=== PATIENT | female | born 1985 | race Two or more races ===

== ENCOUNTER 2023-08-07 15:14 | Emergency (ER) | payer MEDICAID, OTHER ==
[~2023-08-07] VITALS: Ht 167.6 cm; Wt 112.1 kg
[2023-08-07] MEDS: KETOROLAC TROMETH 60MG/2ML VIAL IM ONE (17:43)
[2023-08-07 17:55] VITALS: BP 120/84; TEMP 98.7
[2023-08-07 17:56] VITALS: PULSE 116; RESP 20; O2SAT 99
[2023-08-07] MEDS ORDERED: IBUP-1456 PO (18:10)
[2023-08-07] MEDS ORDERED: METH-1182 PO (18:10)
[2023-08-08] MEDS ORDERED: IBUP-1456 PO (20:20)
[2023-08-08] MEDS ORDERED: METH-1182 PO (20:20)
== END 2023-08-07 18:13 | disposition home or self-care (01) ==
LOC: ER 15:14
DX: S39.011A Strain of muscle, fascia and tendon of abdomen, initial encounter (principal); S93.492A Sprain of other ligament of left ankle, initial encounter; S29.011A Strain of muscle and tendon of front wall of thorax, initial encounter; Z88.0 Allergy status to penicillin; Z88.8 Allergy status to other drugs, medicaments and biological substances; Z79.899 Other long term (current) drug therapy; V43.52XA Car driver injured in collision with other type car in traffic accident, initial encounter; Y93.I9 Activity, other involving external motion; Y92.89 Other specified places as the place of occurrence of the external cause; Y99.8 Other external cause status
CPT/HCPCS: 71250; 73610; 74176; 96372; 99285; J1885

== ENCOUNTER 2023-08-13 14:07 | Emergency (ER) | payer MEDICAID, OTHER ==
[~2023-08-13] VITALS: Ht 167.6 cm; Wt 112.0 kg
[~2023-08-13 14:07] MED LIST: IBUP-1456 PO; METH-1182 PO
[2023-08-13 16:20] VITALS: BP 118/55; PULSE 64; RESP 16; TEMP 98.7; O2SAT 100
== END 2023-08-13 16:26 | disposition home or self-care (01) ==
LOC: EDBD 14:07 → ER 14:07 → EDUNIT# 14:07 → ER 16:26
DX: M94.0 Chondrocostal junction syndrome [Tietze] (principal); F17.210 Nicotine dependence, cigarettes, uncomplicated; Z79.1 Long term (current) use of non-steroidal anti-inflammatories (NSAID); Z79.899 Other long term (current) drug therapy; Z88.0 Allergy status to penicillin; Z88.1 Allergy status to other antibiotic agents
CPT/HCPCS: 36415; 71046; 84484; 93005

== ENCOUNTER 2024-02-01 00:50 | Emergency (ER) | payer MEDICAID ==
[~2024-02-01] VITALS: Ht 167.6 cm; Wt 110.0 kg
[2024-02-01 01:24] LABS: Basophils # (auto) 0 10 ^3/uL (0-0.2); Basophils % (auto) 0.2 % (0.0-2.0); Eosinophils # (auto) 0.1 10 ^3/uL (0-0.8); Eosinophils % (auto) 0.8 % (0.0-7.0); Hematocrit 38.3 % (36.0-46.0); Hemoglobin 13.1 g/dL (12.2-16.2); Lymphocytes # (auto) 3.5 10 ^3/uL (0.4-5.4); Lymphocytes % (auto) 31.7 % (10.0-50.0); Mean Corpuscular Hemoglobin 30.9 pg (28.0-32.0); Mean Corpuscular Hgb Conc. 34.3 g/dL (32.0-36.0); Mean Corpuscular Volume 90.1 fL (80.0-100.0); Monocytes # (auto) 0.7 10 ^3/uL (0-1.3); Monocytes % (auto) 6.1 % (0.0-12.0); Neutrophils # (auto) 6.8 10 ^3/uL (1.6-8.6); Neutrophils % (auto) 61.2 % (37.0-80.0); Platelet Count (auto) 290 10^3/uL (140-450); Red Blood Cells 4.25 10^6/uL (4.0-5.20); Red Cell Distribution Width 13.3 % (11.8-14.3); White Blood Cell 11.1 10^3/uL (4.4-10.8)
[2024-02-01 01:38] LABS: Alanine Aminotransferase 24 U/L (7-40); Albumin 4.3 g/dL (3.2-4.8); Alkaline Phosphatase 114 U/L (46-116); Anion Gap 6 (5-15); Aspartate Aminotransferase 13 U/L (13-40); BUN/Creatinine Ratio 14.4 (10.0-20.0); Blood Urea Nitrogen 14 mg/dL (9-23); Calcium 9.2 mg/dL (8.7-10.4); Carbon Dioxide 26 mmol/L (20-30); Chloride 106 mmol/L (98-107); Glucose 100 mg/dL (74-106); Magnesium 1.8 mg/dL (1.6-2.6); Potassium 3.7 mmol/L (3.5-5.1); Sodium 138 mmol/L (136-145)
[2024-02-01 01:39] LABS: Bilirubin, Total 0.3 mg/dL (0.2-1.0); Total Protein 7.1 g/dL (5.7-8.2)
[2024-02-01 01:59] LABS: INR 0.97 (0.9-1.15); Partial Thromboplastin Time 28.3 SEC (24.5-34.5); Prothrombin Time 10.3 sec (9.3-11.8)
[2024-02-01 02:52] LABS: Urine Bacteria None Seen /hpf (None Seen)
[2024-02-01 03:23] LABS: Urine Blood Negative /uL (Negative); Urine Clarity Clear (Clear); Urine Color Colorless (Yellow); Urine Protein, UAD Negative (Negative); Urine Specific Gravity 1.005 (1.001-1.035); Urine Urobilinogen Normal (Negative); Urine WBC <1 /hpf (0 - 5); Urine pH 5.5 (5.0-9.0)
[2024-02-01 03:44] VITALS: BP 101/60; TEMP 97.4
[2024-02-01 03:45] VITALS: PULSE 68; RESP 18; O2SAT 100
== END 2024-02-01 03:52 | disposition home or self-care (01) ==
LOC: ER 00:50
DX: R07.89 Other chest pain (principal); Z88.0 Allergy status to penicillin; Z88.8 Allergy status to other drugs, medicaments and biological substances; Z79.1 Long term (current) use of non-steroidal anti-inflammatories (NSAID); Z98.890 Other specified postprocedural states; F17.210 Nicotine dependence, cigarettes, uncomplicated
CPT/HCPCS: 36415; 71045; 80053; 81001; 83735; 83880; 84484; 85025; 85379; 85610; 85730; 93005

== ENCOUNTER 2024-03-19 11:45 | Emergency (ER) | payer MEDICAID ==
[~2024-03-19] VITALS: Ht 167.6 cm; Wt 111.3 kg
[2024-03-19 12:04] LABS: Urine Bacteria None Seen /hpf (None Seen); Urine WBC None Seen /hpf (0 - 5)
[2024-03-19 12:21] LABS: Urine Blood 2+ /uL (Negative); Urine Clarity Clear (Clear); Urine Color Colorless (Yellow); Urine Protein, UAD Negative (Negative); Urine Specific Gravity 1.003 (1.001-1.035); Urine Urobilinogen Normal (Negative); Urine pH 6.5 (5.0-9.0)
[2024-03-19] MEDS: SODIUM CHLORIDE 0.9% 1,000 ML IV ONE (13:02)
[2024-03-19] MEDS: ONDANSETRON HCL 4 MG/2 ML VIAL IV ONE (13:10)
[2024-03-19] MEDS: ACETAMINOPHEN 500 MG TAB PO ONE (13:10)
[2024-03-19 13:28] LABS: Basophils # (auto) 0.1 10 ^3/uL (0-0.2); Basophils % (auto) 0.5 % (0.0-2.0); Eosinophils # (auto) 0.1 10 ^3/uL (0-0.8); Eosinophils % (auto) 0.8 % (0.0-7.0); Hematocrit 36.8 % (36.0-46.0); Hemoglobin 12.8 g/dL (12.2-16.2); Lymphocytes # (auto) 2.3 10 ^3/uL (0.4-5.4); Mean Corpuscular Hemoglobin 31.9 pg (28.0-32.0); Mean Corpuscular Hgb Conc. 34.7 g/dL (32.0-36.0); Mean Corpuscular Volume 91.9 fL (80.0-100.0); Monocytes # (auto) 0.5 10 ^3/uL (0-1.3); Monocytes % (auto) 4.9 % (0.0-12.0); Neutrophils # (auto) 6.6 10 ^3/uL (1.6-8.6); Neutrophils % (auto) 69.8 % (37.0-80.0); Platelet Count (auto) 286 10^3/uL (140-450); Red Blood Cells 4.01 10^6/uL (4.0-5.20); Red Cell Distribution Width 13.7 % (11.8-14.3); White Blood Cell 9.5 10^3/uL (4.4-10.8)
[2024-03-19 13:47] LABS: Alanine Aminotransferase 22 U/L (7-40); Albumin 3.6 g/dL (3.2-4.8); Alkaline Phosphatase 77 U/L (46-116); Anion Gap 4 (5-15); Aspartate Aminotransferase 13 U/L (13-40); BUN/Creatinine Ratio 10.3 (10.0-20.0); Bilirubin, Total 0.3 mg/dL (0.2-1.0); Blood Urea Nitrogen 8 mg/dL (9-23); Carbon Dioxide 27 mmol/L (20-31); Chloride 111 mmol/L (98-107); Glucose 92 mg/dL (74-106); Potassium 4.3 mmol/L (3.5-5.1); Sodium 142 mmol/L (136-145); Total Protein 5.6 g/dL (5.7-8.2)
[2024-03-19] MEDS ORDERED: ZOFR4T PO (15:51)
[2024-03-19] MEDS ORDERED: IBUP1TAB5 PO (15:51)
[2024-03-19 16:26] VITALS: BP 101/44; TEMP 97.8
[2024-03-19 16:31] VITALS: PULSE 77; RESP 18; O2SAT 98
== END 2024-03-19 16:34 | disposition home or self-care (01) ==
LOC: ER 11:45
DX: R42 Dizziness and giddiness (principal); R10.2 Pelvic and perineal pain; R51.9 Headache, unspecified; R11.0 Nausea; F17.210 Nicotine dependence, cigarettes, uncomplicated; Z88.0 Allergy status to penicillin; Z88.1 Allergy status to other antibiotic agents; Z79.899 Other long term (current) drug therapy
CPT/HCPCS: 36415; 70450; 80053; 81001; 84484; 84702; 85025; 96361; 96374; 99285; J2405; J7030

== ENCOUNTER 2024-05-30 00:25 | Emergency (ER) | payer MEDICAID ==
[~2024-05-30] VITALS: Ht 167.6 cm; Wt 109.5 kg
[~2024-05-30 00:25] MED LIST changes: +IBUP1TAB5 PO; +ZOFR4T PO
--- NOTE | 2024-05-30 00:54 | ED.PDOC ---
HPI Comments 38 year old female presents to the ED with a chief complaint of chest pain onset 3 days. Patient states she began experiencing chest pain, describes it as a sharp/pressure sensation and radiates to her low back and worsens with deep breaths. Patient is also experiencing blurry vision, headache, dizziness. She donates plasma weekly. Denies any past medical history as well as nausea, vomiting, diarrhea, abdominal pain, dysuria, hematuria. No other symptoms or modifying factors present at this time. Chief Complaint: Chest Pain Time Seen by MD: 00:41 Primary Care Provider: MELANIE Lloyd Notes: Medications, Allergies Allergies: Coded Allergies: Doxycycline (Verified Allergy, Unknown, 08/07/23) Penicillins (Verified Allergy, Unknown, 08/07/23) Home Meds Active Scripts Ondansetron Odt 4MG Tab (ZOFRAN PO) 4 Mg Tb, 4 MG PO TID PRN, #20 TAB prn n/v ODT TAB-DISSOLVE IN MOUTH, THEN SWALLOW Prov:RICHARD DRUMMOND MD 03/19/24 Ibuprofen Micronized (Ibuprofen) 600 Mg Tab, 600 MG PO Q6HPRN PRN, #30 TAB prn pain Prov:RICHARD DRUMMOND MD 03/19/24 Methocarbamol (Methocarbamol) 750 Mg Tab, 750 MG PO BID, #20 TAB Prov:GEETA LEE 08/08/23 Ibuprofen (Ibuprofen) 800 Mg Tab, 1 TAB PO TID, #30 TAB Prov:GEETA LEE 08/08/23 Information Source: Patient Mode of Arrival: Ambulatory Severity: Moderate Timing: Days Duration: Since onset Prehospital treatment: None Location: Chest (L) Radiation: Back Quality: Sharp, Pressure Onset: At Rest Cardiac Risk Factors: Smoker PE Risk Factors: None History of: None Modifying Factors: Nothing Past Medical History PAST MEDICAL HISTORY: Denies Surgical History: Denies all surgeries 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 DESIGNER 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 Family History Family History: Reviewed,noncontributory to illness Social History Smoker: Cigarettes, Other Alcohol: Occasionally Drugs: Denies Drug Use Lives In: Home Constitutional: denies: chills, diaphoresis, fatigue, fever, malaise, sweats, weakness, others EENTM: reports: blurred vision; denies: double vision, ear bleeding, ear discharge, ear drainage, ear pain, ear ringing, eye pain, eye redness, hearing loss, mouth pain, mouth swelling, nasal discharge, nose bleeding, nose congestion, nose pain, photophobia, tearing, throat pain, throat swelling, voice changes, others Respiratory: denies: cough, hemoptysis, orthopnea, SOB at rest, shortness of breath, SOB with excertion, stridor, wheezing, others Cardiovascular: reports: chest pain; denies: dizzy spells, diaphoresis, Dyspnea on exertion, edema, irregular heart beat, left arm pain, lightheadedness, palpitations, PND, syncope, others Gastrointestinal: denies: abdomen distended, abdominal pain, blood streaked bowels, constipated, diarrhea, dysphagia, difficulty swallowing, hematemesis, melena, nausea, poor appetite, poor fluid intake, rectal bleeding, rectal pain, vomiting, others Genitourinary: denies: abnormal vagina bleeding, burning, dyspareunia, dysuria, flank pain, frequency, hematuria, incontinence, pain, , vagina discharge, urgency, others Neurological: reports: dizziness, headache; denies: fainting, left sided numbness, left sided weakness, numbness, paresthesia, pre-existing deficit, right sided numbness, right sided weakness, seizure, speech problems, tingling, tremors, weakness, others Musculoskeletal: reports: back pain; denies: gout, joint pain, joint swelling, muscle pain, muscle stiffness, neck pain, others Integumetry: denies: bruises, change in color, change in hair/nails, dryness, laceration, lesions, lumps, rash, wounds, others Allergic/Immunocompromised: denies: Difficulty Healing, Frequent Infections, Hives, Itching, others Hematologic/Lymphatic: denies: anemia, blood clots, easy bleeding, easy bruising, swollen glands, others Endocrine: denies: excessive hunger, excessive sweating, excessive thirst, excessive urination, flushing, intolerance to cold, intolerance to heat, unexplained weight gain, unexplained weight loss, others Psychiatric: denies: anxiety, bipolar disorder, depression, hopeless, panic disorder, schizophrenia, sleepless, suicidal, others All Other Systems: Reviewed and Negative Physical Exam General Appearance: Mild Distress, Normal HEENT: Normal ENT Inspection, Pharynx Normal, TMs Normal Neck: Full Range of Motion, Non-Tender, Normal, Normal Inspection Respiratory: Chest Non-Tender, Lungs Clear, No Accessory Muscle Use, No Respiratory Distress, Normal Breath Sounds Cardiovascular: No Edema, No JVD, No Murmur, No Gallop, Normal Peripheral Pulses, Regular Rate/Rhythm Breast Exam: Deferred Gastrointestinal: No Organomegaly, Non Tender, No Pulsatile Mass, Normal Bowel Sounds, Soft Genitalia: Deferred Pelvic: Deferred Rectal: Deferred Extremities: No calf tenderness, Normal capillary refill, Normal inspection, Normal range of motion, Non-tender, No pedal edema Musculoskeletal : Apperance: Normal Neurologic: Alert, beet topper II-XII nml as Tested, No Motor Deficits, Normal Affect, Normal Mood, No Sensory Deficits Cerebellar Function: Normal Reflexes: Normal Skin: Dry, Normal Color, Warm Lymphatic: No Adenopathy Was a procedure done? Was a procedure done?: No CP Differential Dx Differential Diagnosis: A-fib, Angina, Heart Failure, Other Differential Diagnosis: CHF Differential Diagnosis: Chest Wall Pain, Esophageal reflux/spasm, Gastritis, Myocardial Infarction, Pneumonia X-Ray, Labs, Meds, VS Vital Signs Date Time Temp Pulse Resp B/P (MAP) Pulse Ox O2 Delivery O2 Flow Rate FiO2 05/30/24 02:15 97.8 72 16 133/68 (89) 97 97.8 05/30/24 02:15 16 16 97 Room Air 05/30/24 00:32 70 05/30/24 00:30 97.8 72 16 133/68 (89) 97 Lab Test 05/30/24 00:48 Range/Units White Blood Count 9.9 4.4-10.8 10^3/uL Red Blood Count 4.45 4.0-5.20 10^6/uL Hemoglobin 13.8 12.2-16.2 g/dL Hematocrit 41.3 36.0-46.0 % Mean Corpuscular Volume 92.8 80.0-100.0 fL Mean Corpuscular Hemoglobin 31.1 28.0-32.0 pg Mean Corpuscular Hemoglobin Concent 33.5 32.0-36.0 g/dL Red Cell Distribution Width 13.3 11.8-14.3 % Platelet Count 314 140-450 10^3/uL Mean Platelet Volume 7.7 6.9-10.8 fL Neutrophils (%) (Auto) 58.9 37.0-80.0 % Lymphocytes (%) (Auto) 34.5 10.0-50.0 % Monocytes (%) (Auto) 5.5 0.0-12.0 % Eosinophils (%) (Auto) 0.6 0.0-7.0 % Basophils (%) (Auto) 0.5 0.0-2.0 % Neutrophils # (Auto) 5.8 1.6-8.6 10 ^3/uL Lymphocytes # (Auto) 3.4 0.4-5.4 10 ^3/uL Monocytes # (Auto) 0.5 0-1.3 10 ^3/uL Eosinophils # (Auto) 0.1 0-0.8 10 ^3/uL Basophils # (Auto) 0 0-0.2 10 ^3/uL Nucleated Red Blood Cells 0.1 % Prothrombin Time 10.3 9.3-11.8 sec Prothrombin Time INR 0.97 0.9-1.15 Activated Partial Thromboplast Time 27.6 24.5-34.5 SEC Sodium Level 140 136-145 mmol/L Potassium Level 4.1 3.5-5.1 mmol/L Chloride Level 107 98-107 mmol/L Carbon Dioxide Level 25 20-31 mmol/L Anion Gap 8 5-15 Blood Urea Nitrogen 9 9-23 mg/dL Creatinine 0.88 0.550-1.02 mg/dL Glomerular Filtration Rate Calc 87 >90 mL/min BUN/Creatinine Ratio 10.2 10.0-20.0 Serum Glucose 99 74-106 mg/dL Calcium Level 9.7 8.7-10.4 mg/dL Total Bilirubin 0.4 0.2-1.0 mg/dL Aspartate Amino Transferase (AST) 11 L 13-40 U/L Alanine Aminotransferase (ALT) 23 7-40 U/L Alkaline Phosphatase 90 46-116 U/L Troponin I High Sensitivity < 3 L </=34 ng/L Total Protein 6.6 5.7-8.2 g/dL Albumin 4.3 3.2-4.8 g/dL Time of 1ST Reevaluation: 01:11 Reevaluation 1ST: Unchanged Time of 2ND Reevaluation: 02:30 Reevaluation 2ND: Improved Patient Education/Counseling: Diagnosis, Treatment, Prognosis Family Education/Counseling: No Family Present Additional Information I reviewed the following notes from patient's past medical encounters: The following tests were ordered, and results were reviewed by me: TROP, TROP, TROP, EKG, EKG, EKG, CBC, CMP, PTPTT, XY CHEST 1 VIEW I reviewed and agreed with the following test results read by other providers: X Y CHEST 1 VIEW I discussed treatment and results with medical personnel and: patient Departure 1 Departure Time of Disposition: 02:30 Impression: Primary Impression: Atypical chest pain Disposition: HOME / SELF CARE / HOMELESS Condition: Stable Discharged With: Self Critical Care Note Critical Care Time?: No Stability Stability form required: No Heart Score Heart Score: Heart Score Response (Comments) Value History Slightly Suspicious 0 EKG Normal 0 Age <45 0 Risk Factors No known risk factors 0 Troponin Normal limit 0 Total 0 I personally scribed for BERRY KNOX MD ([email or web address]) on 05/30/24 at 00:54. Electronically submitted by Kristi Orlando ([email or web address]). I personally scribed for BERRY KNOX MD ([email or web address]) on 05/30/24 at 01:15. Electronically submitted by Kristi Orlando ([email or web address]). BERRY KNOX MD May 30, 2024 00:54
[2024-05-30 01:12] LABS: Basophils # (auto) 0 10 ^3/uL (0-0.2); Basophils % (auto) 0.5 % (0.0-2.0); Eosinophils # (auto) 0.1 10 ^3/uL (0-0.8); Eosinophils % (auto) 0.6 % (0.0-7.0); Hematocrit 41.3 % (36.0-46.0); Hemoglobin 13.8 g/dL (12.2-16.2); Lymphocytes # (auto) 3.4 10 ^3/uL (0.4-5.4); Lymphocytes % (auto) 34.5 % (10.0-50.0); Mean Corpuscular Hemoglobin 31.1 pg (28.0-32.0); Mean Corpuscular Hgb Conc. 33.5 g/dL (32.0-36.0); Mean Corpuscular Volume 92.8 fL (80.0-100.0); Monocytes # (auto) 0.5 10 ^3/uL (0-1.3); Monocytes % (auto) 5.5 % (0.0-12.0); Neutrophils # (auto) 5.8 10 ^3/uL (1.6-8.6); Neutrophils % (auto) 58.9 % (37.0-80.0); Nucleated Red Blood Cells % 0.1 %; Platelet Count (auto) 314 10^3/uL (140-450); Red Blood Cells 4.45 10^6/uL (4.0-5.20); Red Cell Distribution Width 13.3 % (11.8-14.3); White Blood Cell 9.9 10^3/uL (4.4-10.8)
[2024-05-30 01:23] LABS: Alanine Aminotransferase 23 U/L (7-40); Albumin 4.3 g/dL (3.2-4.8); Alkaline Phosphatase 90 U/L (46-116); Anion Gap 8 (5-15); BUN/Creatinine Ratio 10.2 (10.0-20.0); Blood Urea Nitrogen 9 mg/dL (9-23); Calcium 9.7 mg/dL (8.7-10.4); Carbon Dioxide 25 mmol/L (20-31); Chloride 107 mmol/L (98-107); Glucose 99 mg/dL (74-106); Potassium 4.1 mmol/L (3.5-5.1); Sodium 140 mmol/L (136-145)
[2024-05-30 01:24] LABS: Aspartate Aminotransferase 11 U/L (13-40); Bilirubin, Total 0.4 mg/dL (0.2-1.0); Total Protein 6.6 g/dL (5.7-8.2)
[2024-05-30 01:35] LABS: INR 0.97 (0.9-1.15); Partial Thromboplastin Time 27.6 SEC (24.5-34.5); Prothrombin Time 10.3 sec (9.3-11.8)
--- NOTE | 2024-05-30 02:03 | DVH ---
EXAM: XY CHEST XRAY 1 VIEW CLINICAL HISTORY: chest pain TECHNIQUE: Single AP view of the chest WID: COMPARISON: XY CHEST PORTABLE on DOS: 02/01/24 FINDINGS: Lines and tubes: None Chest: The heart size and pulmonary vasculature is within normal limits. No pleural effusion, pneumothorax, or consolidation. The osseous structures are grossly intact. IMPRESSION: No acute cardiopulmonary abnormality.
[2024-05-30 02:15] VITALS: BP 133/68; PULSE 16; RESP 16; TEMP 97.8; O2SAT 97
--- NOTE | 2024-06-08 07:01 | ECG ---
[facility] Test Date: 2024-05-30 Test Time: 00:32:36 Pat Name: NATACHA ROGERS Department: ER Room: Gender: F Brim Stiffener: DARRELL : 1985 Requested By: BERRY KNOX Order Number: [id number] Reading MD: Measurements Intervals [place] Rate: 70 P: 46 PA: 149 QRS: 77 QRSD: 96 T: 44 QT: 396 QTc: 428 Interpretive Statements Sinus rhythm Please click the below link to view image of tracing.
== END 2024-05-30 03:09 | disposition home or self-care (01) ==
LOC: ER 00:25
DX: R07.89 Other chest pain (principal); F17.210 Nicotine dependence, cigarettes, uncomplicated; R42 Dizziness and giddiness; R51.9 Headache, unspecified; Z79.1 Long term (current) use of non-steroidal anti-inflammatories (NSAID); Z88.0 Allergy status to penicillin; Z88.1 Allergy status to other antibiotic agents
CPT/HCPCS: 36415; 71045; 80053; 84484; 85025; 85610; 85730; 93005

== ENCOUNTER 2024-06-19 00:24 | Emergency (ER) | payer MEDICAID ==
[~2024-06-19] VITALS: Ht 167.6 cm; Wt 107.9 kg
--- NOTE | 2024-06-19 00:44 | ED.PDOC ---
HPI Comments 38-year-old female came to emergency room due to chest pains. Patient with a past few hours has been having intermittent episodes of diffuse chest pains, burning, radiating to her neck and back area. Patient has been seen here before for atypical chest pains, but patient states this feels different this time. Chief Complaint: Chest Pain Time Seen by MD: 00:44 Primary Care Provider: MLEANIE Lloyd Notes: Clinical Phlebotomist Notes Allergies: Coded Allergies: Doxycycline (Verified Allergy, Unknown, 08/07/23) Penicillins (Verified Allergy, Unknown, 08/07/23) Home Meds Active Scripts Ondansetron Odt 4MG Tab (ZOFRAN PO) 4 Mg Tb, 4 MG PO TID PRN, #20 TAB prn n/v ODT TAB-DISSOLVE IN MOUTH, THEN SWALLOW Prov:RICHARD DRUMMOND MD 03/19/24 Ibuprofen Micronized (Ibuprofen) 600 Mg Tab, 600 MG PO Q6HPRN PRN, #30 TAB prn pain Prov:RICHARD DRUMMOND MD 03/19/24 Methocarbamol (Methocarbamol) 750 Mg Tab, 750 MG PO BID, #20 TAB Prov:GEETA LEE 08/08/23 Ibuprofen (Ibuprofen) 800 Mg Tab, 1 TAB PO TID, #30 TAB Prov:GEETA LEE 08/08/23 Information Source: Patient Mode of Arrival: Ambulatory Severity: Mild Timing: Hours Duration: Intermittent Prehospital treatment: None Location: Chest (R), Chest (L) Radiation: Back, Neck Quality: Burning Onset: With Light Exertion Cardiac Risk Factors: None PE Risk Factors: None History of: Similar pain in past Associated Signs and Symptoms: Back Pain Past Medical History PAST MEDICAL HISTORY: Denies Surgical History: Denies all surgeries RELIEF 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: No 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 RELIEF 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 Family History Family History: Reviewed,noncontributory to illness Social History Smoker: Cigarettes, Other Alcohol: Occasionally Drugs: Denies Drug Use Lives In: Home Constitutional: denies: chills, diaphoresis, fatigue, fever, malaise, sweats, weakness, others EENTM: denies: blurred vision, double vision, ear bleeding, ear discharge, ear drainage, ear pain, ear ringing, eye pain, eye redness, hearing loss, mouth dex n, mouth swelling, nasal discharge, nose bleeding, nose congestion, nose pain, photophobia, tearing, throat pain, throat swelling, voice changes, others Respiratory: denies: cough, hemoptysis, orthopnea, SOB at rest, shortness of breath, SOB with excertion, stridor, wheezing, others Cardiovascular: reports: chest pain; denies: dizzy spells, diaphoresis, Dyspnea on exertion, edema, irregular heart beat, left arm pain, lightheadedness, palpitations, PND, syncope, others Gastrointestinal: denies: abdomen distended, abdominal pain, blood streaked bowels, constipated, diarrhea, dysphagia, difficulty swallowing, hematemesis, melena, nausea, poor appetite, poor fluid intake, rectal bleeding, rectal pain, vomiting, others Genitourinary: denies: abnormal vagina bleeding, burning, dyspareunia, dysuria, flank pain, frequency, hematuria, incontinence, pain, , vagina discharge, urgency, others Neurological: denies: dizziness, fainting, headache, left sided numbness, left sided weakness, numbness, paresthesia, pre-existing deficit, right sided numbness, right sided weakness, seizure, speech problems, tingling, tremors, weakness, others Musculoskeletal: reports: back pain, neck pain; denies: gout, joint pain, joint swelling, muscle pain, muscle stiffness, others Integumetry: denies: bruises, change in color, change in hair/nails, dryness, laceration, lesions, lumps, rash, wounds, others Allergic/Immunocompromised: denies: Difficulty Healing, Frequent Infections, Hives, Itching, others Hematologic/Lymphatic: denies: anemia, blood clots, easy bleeding, easy bruising, swollen glands, others Endocrine: denies: excessive hunger, excessive sweating, excessive thirst, excessive urination, flushing, intolerance to cold, intolerance to heat, unexplained weight gain, unexplained weight loss, others Psychiatric: denies: anxiety, bipolar disorder, depression, hopeless, panic disorder, schizophrenia, sleepless, suicidal, others Physical Exam General Appearance: No Apparent Distress, Normal HEENT: Normal ENT Inspection, Pharynx Normal, TMs Normal Neck: Full Range of Motion, Non-Tender, Normal, Normal Inspection Respiratory: Chest Non-Tender, Lungs Clear, No Accessory Muscle Use, No Respiratory Distress, Normal Breath Sounds Cardiovascular: No Edema, No JVD, No Murmur, No Gallop, Normal Peripheral Pulses, Regular Rate/Rhythm Breast Exam: Deferred Gastrointestinal: No Organomegaly, Non Tender, No Pulsatile Mass, Normal Bowel Sounds, Soft Genitalia: Deferred Pelvic: Deferred Rectal: Deferred Extremities: No calf tenderness, Normal capillary refill, Normal inspection, Normal range of motion, Non-tender, No pedal edema Musculoskeletal : Apperance: Normal Neurologic: Alert, ad operations coordinator II-XII nml as Tested, No Motor Deficits, Normal Affect, Normal Mood, No Sensory Deficits Cerebellar Function: Normal Reflexes: Normal Skin: Dry, Normal Color, Warm Lymphatic: No Adenopathy Was a procedure done? Was a procedure done?: No CP Differential Dx Differential Diagnosis: Angina, Anxiety / Panic Attack Differential Diagnosis: Angina, Chest Wall Pain, Costochondritis, Esophageal reflux/spasm, Gastritis, Myocardial Infarction, Pneumonia X-Ray, Labs, Meds, VS Vital Signs Date Time Temp Pulse Resp B/P (MAP) Pulse Ox O2 Delivery O2 Flow Rate FiO2 06/19/24 01:51 70 06/19/24 00:25 97.7 68 18 114/67 (83) 95 Lab Test 06/19/24 01:28 06/19/24 00:35 06/19/24 00:30 Range/Units Troponin I High Sensitivity < 3 L < 3 L </=34 ng/L Urine Color Light-yellow Yellow Urine Clarity Clear Clear Urine pH 5.5 5.0-9.0 Urine Specific [place] 1.020 1.001-1.035 Urine Protein Negative Negative Urine Ketones Negative Negative Urine Blood Negative Negative /uL Urine Nitrite Negative Negative Urine Bilirubin Negative Negative Urine Urobilinogen Normal Negative mg/dL Urine Leukocyte Esterase Negative Negative /uL Urine RBC <1 0 - 4 /hpf Urine WBC <1 0 - 5 /hpf Urine Squamous Epithelial Cells Few <5 /hpf Urine Bacteria Few H None Seen /hpf Urine Mucus Few None Seen Urine Glucose Normal Normal mg/dL White Blood Count 11.7 H 4.4-10.8 10^3/uL Red Blood Count 4.25 4.0-5.20 10^6/uL Hemoglobin 13.3 12.2-16.2 g/dL Hematocrit 39.3 36.0-46.0 % Mean Corpuscular Volume 92.6 80.0-100.0 fL Mean Corpuscular Hemoglobin 31.4 28.0-32.0 pg Mean Corpuscular Hemoglobin Concent 33.9 32.0-36.0 g/dL Red Cell Distribution Width 13.4 11.8-14.3 % Platelet Count 323 140-450 10^3/uL Mean Platelet Volume 7.4 6.9-10.8 fL Neutrophils (%) (Auto) 58.3 37.0-80.0 % Lymphocytes (%) (Auto) 34.8 10.0-50.0 % Monocytes (%) (Auto) 5.7 0.0-12.0 % Eosinophils (%) (Auto) 0.8 0.0-7.0 % Basophils (%) (Auto) 0.4 0.0-2.0 % Neutrophils # (Auto) 6.8 1.6-8.6 10 ^3/uL Lymphocytes # (Auto) 4.1 0.4-5.4 10 ^3/uL Monocytes # (Auto) 0.7 0-1.3 10 ^3/uL Eosinophils # (Auto) 0.1 0-0.8 10 ^3/uL Basophils # (Auto) 0 0-0.2 10 ^3/uL Nucleated Red Blood Cells 0.1 % Sodium Level 139 136-145 mmol/L Potassium Level 3.9 3.5-5.1 mmol/L Chloride Level 106 98-107 mmol/L Carbon Dioxide Level 27 20-31 mmol/L Anion Gap 6 5-15 Blood Urea Nitrogen 9 9-23 mg/dL Creatinine 0.95 0.550-1.02 mg/dL Glomerular Filtration Rate Calc 79 >90 mL/min BUN/Creatinine Ratio 9.5 L 10.0-20.0 Serum Glucose 95 74-106 mg/dL Calcium Level 9.9 8.7-10.4 mg/dL Current Medications Medications (Trade) Dose Ordered Sig/Shayan Route Start Time Stop Time Status Last Admin Famotidine (Pepcid Tablet) 20 mg ONCE ONCE PO 06/19/24 01:00 06/19/24 01:01 DC 06/19/24 01:38 Al Hydrox/Mg Hydrox/Simethicone (Maalox Plus) 15 ml ONCE ONCE PO 06/19/24 01:00 06/19/24 01:01 DC 06/19/24 01:38 Time of 1ST Reevaluation: 00:38 Reevaluation 1ST: Unchanged Patient Education/Counseling: Diagnosis, Treatment Family Education/Counseling: No Family Present Departure 1 Departure Time of Disposition: 05:01 (Patient presented with chest pain that was concerning for possible STEMI, ACS, PE, Pneumonia, Muscle Strain, COPD, Dissection. Data: 1. I ordered and reviewed the result of at least 3 labs including a CBC, BMP, and Troponin. 2. I independently interpreted the following tests: EKG which shows normal sinus rhythm and Chest X-ray which shows a benign chest.Risk:This patient presented with a high risk of morbidity due to further diagnostic testing or treatment and may suffer from an acute cardiac or respiratory disorder. After review of all the data patient is unlikely to have a pe , dissection, and is low risk for acs. Patient is stable at this time.Workup so far is benign and patient will be discharged with outpatient followup. ) Impression: Primary Impression: Acute chest pain Disposition: 01 HOME / SELF CARE / HOMELESS Condition: Stable Additional Instructions: You presented today with chest pain. Your workup today was benign including labs, troponin, EKG, chest x-ray. Your pain may be from musculoskeletal strain, acid reflux, anxiety, or many other factors. It is important to follow up with your regular doctor within 1 week. If your symptoms worsen or you have any other concerns please return to the emergency room. Critical Care Note Critical Care Time?: No Stability Stability form required: No Heart Score Heart Score: Heart Score Response (Comments) Value History Slightly Suspicious 0 EKG Normal 0 Age <45 0 Risk Factors No known risk factors 0 Troponin Normal limit 0 Total 0 I personally scribed for SANDHYA MCNULTY MD ([email or web address]) on 06/19/24 at 00:44. Electronically submitted by Ravindra Ortiz ([email or web address]). SANDHYA MCNULTY MD Jun 19, 2024 00:44
[2024-06-19 01:07] LABS: Basophils # (auto) 0 10 ^3/uL (0-0.2); Basophils % (auto) 0.4 % (0.0-2.0); Eosinophils # (auto) 0.1 10 ^3/uL (0-0.8); Eosinophils % (auto) 0.8 % (0.0-7.0); Hematocrit 39.3 % (36.0-46.0); Hemoglobin 13.3 g/dL (12.2-16.2); Lymphocytes # (auto) 4.1 10 ^3/uL (0.4-5.4); Lymphocytes % (auto) 34.8 % (10.0-50.0); Mean Corpuscular Hemoglobin 31.4 pg (28.0-32.0); Mean Corpuscular Hgb Conc. 33.9 g/dL (32.0-36.0); Mean Corpuscular Volume 92.6 fL (80.0-100.0); Monocytes # (auto) 0.7 10 ^3/uL (0-1.3); Monocytes % (auto) 5.7 % (0.0-12.0); Neutrophils # (auto) 6.8 10 ^3/uL (1.6-8.6); Neutrophils % (auto) 58.3 % (37.0-80.0); Nucleated Red Blood Cells % 0.1 %; Platelet Count (auto) 323 10^3/uL (140-450); Red Blood Cells 4.25 10^6/uL (4.0-5.20); Red Cell Distribution Width 13.4 % (11.8-14.3); White Blood Cell 11.7 10^3/uL (4.4-10.8)
[2024-06-19 01:11] LABS: Chloride 106 mmol/L (98-107); Potassium 3.9 mmol/L (3.5-5.1); Sodium 139 mmol/L (136-145)
[2024-06-19 01:12] LABS: Anion Gap 6 (5-15); Calcium 9.9 mg/dL (8.7-10.4); Carbon Dioxide 27 mmol/L (20-31)
[2024-06-19 01:14] LABS: Urine Bacteria FEW /hpf (None Seen); Urine Blood Negative /uL (Negative); Urine Clarity Clear (Clear); Urine Color Light-Yellow (Yellow); Urine Mucus FEW (None Seen); Urine Protein, UAD Negative (Negative); Urine Squamous Epithelial Cell FEW /hpf (<5); Urine Urobilinogen Normal (Negative); Urine WBC <1 /hpf (0 - 5); Urine pH 5.5 (5.0-9.0)
[2024-06-19 01:17] LABS: BUN/Creatinine Ratio 9.5 (10.0-20.0); Blood Urea Nitrogen 9 mg/dL (9-23); Glucose 95 mg/dL (74-106)
[2024-06-19] MEDS: MAALOX PLUS or MAALOX 30 ML PO ONE (01:38)
[2024-06-19] MEDS: FAMOTIDINE 20 MG TAB PO ONE (01:38)
--- NOTE | 2024-06-19 03:28 | DVH ---
Examination: CXRP Clinical Indication: chest pain Comparison: None. Technique: PA view of chest was obtained. Findings: The lungs are clear and well-expanded with no pulmonary infiltrate or pleural effusion. The cardiomediastinal silhouette is within normal limits. No acute osseous abnormality. Impression: No acute cardiopulmonary disease. Electronically Signed 06/19/2024 03:28 Keshia Li
[2024-06-19 05:41] VITALS: BP 103/56; PULSE 71; RESP 18; O2SAT 96
--- NOTE | 2024-06-20 07:11 | ECG ---
[facility] Test Date: 2024-06-19 Test Time: 01:51:06 Pat Name: NATACHA ROGERS Department: ER Room: Gender: F Automation Qa Tester: PEPE : 1985 Requested By: SANDHYA MCNULTY Order Number: [id number] Reading MD: Measurements Intervals [place] Rate: 70 P: 46 [place]: 166 QRS: 64 QRSD: 98 T: 28 QT: 390 QTc: 421 Interpretive Statements Sinus rhythm Please click the below link to view image of tracing.
--- NOTE | 2024-06-20 09:42 | ECG ---
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
== END 2024-06-19 05:47 | disposition home or self-care (01) ==
LOC: ER 00:26
DX: R07.89 Other chest pain (principal); F17.210 Nicotine dependence, cigarettes, uncomplicated; Z79.1 Long term (current) use of non-steroidal anti-inflammatories (NSAID); Z88.0 Allergy status to penicillin; Z88.1 Allergy status to other antibiotic agents
CPT/HCPCS: 36415; 71045; 80048; 81001; 84484; 85025; 93005

== ENCOUNTER 2024-07-08 17:24 | Emergency (ER) | payer MEDICAID ==
[~2024-07-08] VITALS: Ht 165.1 cm; Wt 90.0 kg
[2024-07-08 20:28] VITALS: BP 109/64; PULSE 71; RESP 18; TEMP 97.9; O2SAT 98
--- NOTE | 2024-07-08 20:28 | ED.PDOC ---
HPI (NEURO) HPI Comments Pt presents to the ER with a C/C of dog bite to groin region. Pt note to have lacerations to right testicle and right buttocks, states attacked by neighbors dog. No active bleeding. Denies any pain at this time. Chief Complaint: Headache Time Seen by MD: 18:26 Primary Care Provider: MELANIE Lloyd Notes: Nurses Notes, Medications, Allergies Information Source: Patient Mode of Arrival: EMS Past Medical History PAST MEDICAL HISTORY: Denies Surgical History: Denies all surgeries CASHIER History: No Pertinent CASHIER History Family History Family History: Reviewed,noncontributory to illness Social History Smoker: Cigarettes, Other Alcohol: Occasionally Drugs: Denies Drug Use Lives In: Home Constitutional: denies: chills, diaphoresis, fatigue, fever, malaise, sweats, weakness, others EENTM: reports: blurred vision; denies: double vision, ear bleeding, ear discharge, ear drainage, ear pain, ear ringing, eye pain, eye redness, hearing loss, mouth pain, mouth swelling, nasal discharge, nose bleeding, nose congestion, nose pain, photophobia, tearing, throat pain, throat swelling, voice changes, others Respiratory: denies: cough, hemoptysis, orthopnea, SOB at rest, shortness of breath, SOB with excertion, stridor, wheezing, others Cardiovascular: denies: chest pain, dizzy spells, diaphoresis, Dyspnea on exertion, edema, irregular heart beat, left arm pain, lightheadedness, palpitations, PND, syncope, others Gastrointestinal: denies: abdomen distended, abdominal pain, blood streaked bowels, constipated, diarrhea, dysphagia, difficulty swallowing, hematemesis, melena, nausea, poor appetite, poor fluid intake, rectal bleeding, rectal pain, vomiting, others Genitourinary: denies: abnormal vagina bleeding, burning, dyspareunia, dysuria, flank pain, frequency, hematuria, incontinence, pain, , vagina discharge, urgency, others Neurological: reports: dizziness, headache; denies: fainting, left sided numbness, left sided weakness, numbness, paresthesia, pre-existing deficit, right sided numbness, right sided weakness, seizure, speech problems, tingling, tremors, weakness, others Musculoskeletal: denies: back pain, gout, joint pain, joint swelling, muscle pain, muscle stiffness, neck pain, others Integumetry: denies: bruises, change in color, change in hair/nails, dryness, laceration, lesions, lumps, rash, wounds, others Allergic/Immunocompromised: denies: Difficulty Healing, Frequent Infections, Hives, Itching, others Hematologic/Lymphatic: denies: anemia, blood clots, easy bleeding, easy bruising, swollen glands, others Endocrine: denies: excessive hunger, excessive sweating, excessive thirst, excessive urination, flushing, intolerance to cold, intolerance to heat, unexplained weight gain, unexplained weight loss, others Psychiatric: denies: anxiety, bipolar disorder, depression, hopeless, panic disorder, schizophrenia, sleepless, suicidal, others Physical Exam General Appearance: No Apparent Distress, Normal HEENT: Normal ENT Inspection, Pharynx Normal, TMs Normal Neck: Full Range of Motion, Non-Tender Respiratory: Lungs Clear, No Respiratory Distress, Normal Breath Sounds Cardiovascular: No Edema, No JVD, No Murmur, No Gallop, Normal Peripheral Pulses, Regular Rate/Rhythm Breast Exam: Deferred Gastrointestinal: No Organomegaly, Non Tender, No Pulsatile Mass, Normal Bowel Sounds, Soft Genitalia: Deferred Pelvic: Deferred Rectal: Deferred Extremities: Normal capillary refill, Normal inspection, Normal range of motion, Non-tender, No pedal edema Musculoskeletal : Apperance: Normal Neurologic: Alert, migrant leader II-XII nml as Tested, No Motor Deficits, Normal Affect, Normal Mood, No Sensory Deficits Cerebellar Function: Normal Reflexes: Normal Skin: Dry, Normal Color, Warm Lymphatic: No Adenopathy Was a procedure done? Was a procedure done?: No Differential Diagnosis (SZ) Headache: Epidural Hemorrhage, Intracerebral Hemorrhage, Subarachnoid Hemorrhage, Mass Lesion, Meningitis X-Ray, Labs, Meds, VS Vital Signs Date Time Temp Pulse Resp B/P (MAP) Pulse Ox O2 Delivery O2 Flow Rate FiO2 07/08/24 20:28 71 18 98 Room Air 07/08/24 20:28 97.9 71 18 109/64 (79) 98 97.9 07/08/24 17:26 98.8 76 16 141/86 (104) 99 Current Medications Medications (Trade) Dose Ordered Sig/Shayan Route Start Time Stop Time Status Last Admin Ketorolac Tromethamine (Toradol Injection) 60 mg ONCE ONCE IM 07/08/24 20:45 07/08/24 20:46 DC 07/08/24 20:56 X-Ray, Labs, Meds, VS Comment CT NECK AND BRAIN NEGATIVE FOR ACUTE FINDINGS CERVICAL NECK STRAIN IN CERVICOGENIC HEADACHE. 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 IBUPROFEN [id number]. ADVISED TO FOLLOW UP PCP WITHIN 2-3 DAYS NECESSARY. ER RETURN PRECAUTIONS GIVEN PATIENT INDICATES UNDERSTANDING AGREES WITH DISCHARGE PLAN OF CARE Time of 1ST Reevaluation: 21:15 Reevaluation 1ST: Improved Patient Education/Counseling: Diagnosis, Treatment, Prognosis, Need For Follow Up Family Education/Counseling: No Family Present Departure 1 Departure Time of Disposition: 21:13 Impression: Primary Impression: Headache Qualified Codes: G44.209 - Tension-type headache, unspecified, not intractable Additional Impression: Sprain of cervical neck Qualified Codes: S13.9XXA - Sprain of joints and ligaments of unspecified parts of neck, initial encounter Disposition: HOME / SELF CARE / HOMELESS Condition: Stable e-Prescriptions Tizanidine Hydrochloride (Tizanidine Hcl) 4 Mg Tab 4 MG PO BID PRN for 5 Days, #10 TAB Prov: JOSE BLACK 07/08/24 Discharged With: Self Critical Care Note Critical Care Time?: No Stability Stability form required: JOSE Barney Jul 08, 2024 20:28
[2024-07-08] MEDS: KETOROLAC TROMETH 60MG/2ML VIAL IM ONE (20:56)
--- NOTE | 2024-07-08 21:06 | DVH ---
CLINICAL HISTORY: Neck PAIN TECHNIQUE: CT exam of the cervical spine was performed without intravenous contrast. This exam was pe rformed according to our departmental dose optimization program. Up-to-date CT equipment and radiatio n dose reduction techniques are utilized as appropriate. COMPARISON: CT HEAD WITHOUT CONTRAST on DOS: 03/19/24 FINDINGS: There is normal cervical alignment. The vertebral body heights are maintained. No acute cervical frac ture or subluxation is identified. No significant central or neural foraminal narrowing is identified . The paraspinous soft tissues are unremarkable. The lung apices are clear. IMPRESSION: No acute fracture or traumatic malalignment.
--- NOTE | 2024-07-08 21:11 | DVH ---
CLINICAL HISTORY: SUDDEN ONSET HEAD PAIN/BLURRY VISION/WEAKNESS TECHNIQUE: Helical imaging carried out from skull base to vertex without intravenous contrast. This e xam was performed according to our departmental dose optimization program. Up-to-date CT equipment an d radiation dose reduction techniques are utilized as appropriate. [Radimetrics Exposure Report] CTDIVol: 58.79 mGy DLP: 1158.44 mGy-cm WID: COMPARISON: CT HEAD WITHOUT CONTRAST on DOS: 03/19/24 FINDINGS: The ventricles and subarachnoid spaces are normal in size and configuration. There is no midline jurgen ft or mass effect. The grover white matter interfaces are maintained. The basal cisterns are patent. Th ere is no evidence of acute intracranial hemorrhage or extra-axial fluid collection. The mastoid air cells and visualized paranasal sinuses are well-aerated. IMPRESSION: No acute intracranial abnormality.
[2024-07-08] MEDS ORDERED: TIZA-142 PO (21:15)
== END 2024-07-08 21:27 | disposition home or self-care (01) ==
LOC: ER 17:24 → EDBD 17:24 → ER 21:26
DX: S13.4XXA Sprain of ligaments of cervical spine, initial encounter (principal); R51.9 Headache, unspecified; F17.210 Nicotine dependence, cigarettes, uncomplicated; X58.XXXA Exposure to other specified factors, initial encounter; Y93.89 Activity, other specified; Y92.89 Other specified places as the place of occurrence of the external cause; Y99.8 Other external cause status
CPT/HCPCS: 70450; 72125; 96372; 99285; J1885

== ENCOUNTER 2024-07-31 22:30 | Emergency (ER) | payer MEDICAID ==
[~2024-07-31] VITALS: Ht 167.6 cm; Wt 109.5 kg
[2024-08-01 00:14] LABS: Urine Bacteria FEW /hpf (None Seen); Urine Blood 3+ /uL (Negative); Urine Clarity Turbid (Clear); Urine Color Light-Yellow (Yellow); Urine Protein, UAD Negative (Negative); Urine Squamous Epithelial Cell FEW /hpf (<5); Urine Urobilinogen Normal (Negative); Urine WBC 8 /HPF (0-5); Urine pH 5.5 (5.0-9.0)
[2024-08-01] MEDS: DexAMETHasone SOD PHOS 10MG/1ML VIAL INJ IM ONE (01:31)
[2024-08-01] MEDS: KETOROLAC TROMETH 60MG/2ML VIAL IM ONE (01:31)
[2024-08-01] MEDS ORDERED: SUMA25TA2 PO (01:47)
--- NOTE | 2024-08-01 01:49 | ED.PDOC ---
HPI (NEURO) HPI Comments PT C/O LEFT JAW PAIN, RADIATING TO HER HEAD, CAUSING BILATERAL EYE PAIN, NAUSEA. PT HAS HAD DIARRHEA TODAY. PATIENT WAS SEEN HERE IN [place] FOR HEADACHE WELL. VS STABLE, PT DENIES OTHER SYMPTOM. Denies numbness, weakness, slurred speech, fever, chills, , chest pain, difficulty breathing, or shortness of breath. Denies worst headache of her life. Chief Complaint: Headache Time Seen by MD: 23:16 Primary Care Provider: MELANIE Lloyd Notes: Nurses Notes, Medications, Allergies Information Source: Patient Mode of Arrival: Ambulatory Past Medical History PAST MEDICAL HISTORY: Denies Surgical History: Denies all surgeries DELIMER History: No Pertinent DELIMER History Family History Family History: Reviewed,noncontributory to illness Social History Smoker: Cigarettes, Other Alcohol: Occasionally Drugs: Denies Drug Use Lives In: Home Constitutional: denies: chills, diaphoresis, fatigue, fever, malaise, sweats, weakness, others EENTM: denies: blurred vision, double vision, ear bleeding, ear discharge, ear drainage, ear pain, ear ringing, eye pain, eye redness, hearing loss, mouth pain, mouth swelling, nasal discharge, nose bleeding, nose congestion, nose pain, photophobia, tearing, throat pain, throat swelling, voice changes, others Respiratory: denies: cough, hemoptysis, orthopnea, SOB at rest, shortness of breath, SOB with excertion, stridor, wheezing, others Cardiovascular: denies: chest pain, dizzy spells, diaphoresis, Dyspnea on exertion, edema, irregular heart beat, left arm pain, lightheadedness, palpitations, PND, syncope, others Gastrointestinal: reports: nausea; denies: abdomen distended, abdominal pain, blood streaked bowels, constipated, diarrhea, dysphagia, difficulty swallowing, hematemesis, melena, poor appetite, poor fluid intake, rectal bleeding, rectal pain, vomiting, others Genitourinary: denies: abnormal vagina bleeding, burning, dyspareunia, dysuria, flank pain, frequency, hematuria, incontinence, pain, , vagina discharge, urgency, others Neurological: denies: dizziness, fainting, headache, left sided numbness, left sided weakness, numbness, paresthesia, pre-existing deficit, right sided numbness, right sided weakness, seizure, speech problems, tingling, tremors, weakness, others Musculoskeletal: denies: back pain, gout, joint pain, joint swelling, muscle pain, muscle stiffness, neck pain, others Integumetry: denies: bruises, change in color, change in hair/nails, dryness, laceration, lesions, lumps, rash, wounds, others Allergic/Immunocompromised: denies: Difficulty Healing, Frequent Infections, Hives, Itching, others Hematologic/Lymphatic: denies: anemia, blood clots, easy bleeding, easy bruising, swollen glands, others Endocrine: denies: excessive hunger, excessive sweating, excessive thirst, excessive urination, flushing, intolerance to cold, intolerance to heat, unexplained weight gain, unexplained weight loss, others Psychiatric: denies: anxiety, bipolar disorder, depression, hopeless, panic disorder, schizophrenia, sleepless, suicidal, others Physical Exam General Appearance: No Apparent Distress, Normal HEENT: Normal ENT Inspection, Pharynx Normal, TMs Normal Neck: Full Range of Motion, Non-Tender Respiratory: Lungs Clear, No Respiratory Distress, Normal Breath Sounds Cardiovascular: No Edema, No JVD, No Murmur, No Gallop, Normal Peripheral Pulses, Regular Rate/Rhythm Breast Exam: Deferred Gastrointestinal: No Organomegaly, Non Tender, No Pulsatile Mass, Normal Bowel Sounds, Soft Genitalia: Deferred Pelvic: Deferred Rectal: Deferred Extremities: Normal capillary refill, Normal inspection, Normal range of motion, Non-tender, No pedal edema Musculoskeletal : Apperance: Normal Neurologic: Alert, area representative II-XII nml as Tested, No Motor Deficits, Normal Affect, Normal Mood, No Sensory Deficits Cerebellar Function: Normal Reflexes: Normal Skin: Dry, Normal Color, Warm Lymphatic: No Adenopathy Was a procedure done? Was a procedure done?: No Differential Diagnosis (SZ) Headache: Cluster, Migraine, Epidural Hemorrhage, Intracerebral Hemorrhage, Mass Lesion, Meningitis, Sinusitis, Trigeminal Neuralgia X-Ray, Labs, Meds, VS Vital Signs Date Time Temp Pulse Resp B/P (MAP) Pulse Ox O2 Delivery O2 Flow Rate FiO2 07/31/24 22:55 97.9 79 18 106/53 (70) 94 Lab Test 07/31/24 23:00 Range/Units Urine Color Light-yellow Yellow Urine Clarity Turbid H Clear Urine pH 5.5 5.0-9.0 Urine Specific Ambrose 1.020 1.001-1.035 Urine Protein Negative Negative Urine Ketones Negative Negative Urine Blood 3+ H Negative /uL Urine Nitrite Negative Negative Urine Bilirubin Negative Negative Urine Urobilinogen Normal Negative mg/dL Urine Leukocyte Esterase 1+ Negative /uL Urine RBC 437 0 - 4 /hpf Urine Microscopic WBC 8 H 0-5 /HPF Urine Squamous Epithelial Cells Few <5 /hpf Urine Bacteria Few H None Seen /hpf Urine Glucose Normal Normal mg/dL Current Medications Medications (Trade) Dose Ordered Sig/Shayan Route Start Time Stop Time Status Last Admin Ketorolac Tromethamine (Toradol Injection) 60 mg ONCE ONCE IM 08/01/24 01:15 08/01/24 01:16 DC 08/01/24 01:31 Dexamethasone Sodium Phosphate (Decadron Injection) 10 mg ONCE ONCE IM 08/01/24 01:15 08/01/24 01:16 DC 08/01/24 01:31 X-Ray, Labs, Meds, VS Comment Toradol 60 mg IM and Decadron 10 mg IM. Reports improvement in pain is requesting discharge at this time. Script sumatriptan to pharmacy on file. Advised to rest increase p.o. fluids with electrolytes. With your primary care provider within 1-2 days consider referral for Neurology. Medications as prescribed side effects discussed. ER return precautions given patient indicates understanding agrees with discharge plan of care. Time of 1ST Reevaluation: 01:44 Reevaluation 1ST: Improved Patient Education/Counseling: Diagnosis, Treatment, Prognosis, Need For Follow Up Family Education/Counseling: No Family Present Departure 1 Departure Time of Disposition: 01:44 Impression: Primary Impression: Headache Qualified Codes: G44.84 - Primary exertional headache Additional Impression: Nausea Disposition: 01 HOME / SELF CARE / HOMELESS Condition: Stable e-Prescriptions Sumatriptan Succinate (Sumatriptan Succinate) 25 Mg Tab 25 MG PO ONCE PRN for 3 Days, #6 TAB Take 1 tab once by mouth at onset of migraine, may repeat one tab two hours after first dose if migraine is persistent. Prov: JOSE BLACK 08/01/24 Discharged With: Self Critical Care Note Critical Care Time?: No Stability Stability form required: No JOSE BLACK Aug 01, 2024 01:49
[2024-08-01 01:59] VITALS: BP 96/52; PULSE 64; RESP 18; TEMP 97.9; O2SAT 97
== END 2024-08-01 02:04 | disposition home or self-care (01) ==
LOC: ER 22:30
DX: R51.9 Headache, unspecified (principal); R11.0 Nausea; F17.210 Nicotine dependence, cigarettes, uncomplicated
CPT/HCPCS: 81001; 96372; 99284; J1100; J1885

== ENCOUNTER 2025-02-05 22:13 | Emergency (ER) | payer MEDICAID ==
[~2025-02-05] VITALS: Ht 167.6 cm; Wt 103.4 kg
[2025-02-05] MEDS ORDERED: CLIN1CAP70 PO (22:46)
--- NOTE | 2025-02-05 22:56 | ED.PDOC ---
Eye-HPI HPI Comments 39 y/o F, with a history of previous tooth infections, presents with c/c left jaw pain, with inner jaw swelling, redness, and puss discharge. Endorsement of 2x day history of symptoms. Current cavity infection in left wisdom teeth. No scheduled wisdom teeth extraction, yet. Denies any further acute symptoms. Chief Complaint: Tooth Pain Time Seen by MD: 22:45 Primary Care Provider: MELANIE Reviewed Notes: Nurses Notes, Medications, Allergies Allergies: Coded Allergies: Doxycycline (Verified Allergy, Unknown, 08/07/23) Penicillins (Verified Allergy, Unknown, 08/07/23) Home Meds Active Scripts Clindamycin Hcl (Clindamycin Hcl) 300 Mg Cap, 1 CAP PO BID for 10 Days, #20 CAP Prov:BERRY KNOX MD 02/05/25 Ondansetron Odt 4MG Tab (ZOFRAN PO) 4 Mg Tb, 4 MG PO TID PRN, #20 TAB prn n/v ODT TAB-DISSOLVE IN MOUTH, THEN SWALLOW Prov:RICHARD DRUMMOND MD 03/19/24 Ibuprofen Micronized (Ibuprofen) 600 Mg Tab, 600 MG PO Q6HPRN PRN, #30 TAB prn pain Prov:RICHARD DRUMMOND MD 03/19/24 Methocarbamol (Methocarbamol) 750 Mg Tab, 750 MG PO BID, #20 TAB Prov:GEETA LEE 08/08/23 Ibuprofen (Ibuprofen) 800 Mg Tab, 1 TAB PO TID, #30 TAB Prov:GEETA LEE 08/08/23 Information Source: Patient Mode of Arrival: Ambulatory Past Medical History Past Medical History (Other): previous tooth infections Surgical History: Denies all surgeries FARROWING MANAGER History: No Pertinent FARROWING MANAGER History Family History Family History: Reviewed,noncontributory to illness Social History Smoker: Cigarettes, Other Alcohol: Occasionally Drugs: Denies Drug Use Lives In: Home All Other Systems: Reviewed and Negative (as per HPI) Physical Exam General Appearance: No Apparent Distress, Obese HEENT: Normal ENT Inspection, Pharynx Normal, TMs Normal, Other (tenderness to left mandible without swelling ) Neck: Full Range of Motion, Non-Tender, Normal, Normal Inspection Respiratory: Chest Non-Tender, Lungs Clear, No Accessory Muscle Use, No Respiratory Distress, Normal Breath Sounds Cardiovascular: No Edema, No JVD, No Murmur, No Gallop, Normal Peripheral Pulses, Regular Rate/Rhythm Breast Exam: Deferred Gastrointestinal: No Organomegaly, Non Tender, No Pulsatile Mass, Normal Bowel Sounds, Soft Genitalia: Deferred Pelvic: Deferred Rectal: Deferred Extremities: No calf tenderness, Normal capillary refill, Normal inspection, Normal range of motion, Non-tender, No pedal edema Musculoskeletal : Apperance: Normal Neurologic: Alert, it service delivery manager II-XII nml as Tested, No Motor Deficits, Normal Affect, Normal Mood, No Sensory Deficits Cerebellar Function: Normal Reflexes: Normal Skin: Dry, Normal Color, Warm Lymphatic: No Adenopathy Was a procedure done? Was a procedure done?: No EENT DIFF Eye: N/A Ear: N/A Nose: N/A Mouth: Other (cavity infection; dental abscess ) Sore Throat: N/A X-Ray, Labs, Meds, VS Vital Signs Date Time Temp Pulse Resp B/P (MAP) Pulse Ox O2 Delivery O2 Flow Rate FiO2 02/06/25 00:54 98.4 59 18 109/59 (76) 100 98.4 02/06/25 00:54 59 18 100 Room Air 02/05/25 22:14 98.4 72 16 95/62 98 98.4 Current Medications Medications (Trade) Dose Ordered Sig/Shayan Route Start Time Stop Time Status Last Admin Clindamycin HCl (Cleocin Capsule) 300 mg ONCE ONCE PO 02/05/25 22:45 02/05/25 22:46 DC 02/06/25 00:52 Time of 1ST Reevaluation: 22:55 Reevaluation 1ST: Unchanged Patient Education/Counseling: Diagnosis, Treatment, Need For Follow Up Family Education/Counseling: No Family Present SEPSIS Sepsis Screen Date sepsis recognized/suspect: Feb 05, 2025 Time Sepsis recognized/suspect: 2213 Recent Procedure: No On Antibiotic Therapy: No Respiratory Rate >20: No Heart Rate >90: No Temp<36 C (96.8 F) or >38.3 C: No SBP <90 or MAP <65 mmHG: No New Acute Mental Status Change: No Is the patient on CPAP, BIPAP,: No Vital Signs Date Time Temp Pulse Resp B/P (MAP) Pulse Ox O2 Delivery O2 Flow Rate FiO2 02/06/25 00:54 98.4 59 18 109/59 (76) 100 98.4 02/06/25 00:54 59 18 100 Room Air 02/05/25 22:14 98.4 72 16 95/62 98 98.4 Medications Medications Dose Ordered Sig/Shayan Route Start Time Stop Time Status Last Admin Dose Admin Clindamycin HCl 300 mg ONCE ONCE PO 02/05/25 22:45 02/05/25 22:46 DC 02/06/25 00:52 Departure 1 Departure Time of Disposition: 01:00 Impression: Primary Impression: Dental abscess Disposition: 01 HOME / SELF CARE / HOMELESS Condition: Stable Additional Instructions: Follow up with your Dentist Return to the Emergency Department for any worsening symptoms or concerns e-Prescriptions Clindamycin Hcl (Clindamycin Hcl) 300 Mg Cap 1 CAP PO BID for 10 Days, #20 CAP Prov: BERRY KNOX MD 02/05/25 Discharged With: Self Critical Care Note Critical Care Time?: No Stability Stability form required: No Heart Score Heart Score: Heart Score Response (Comments) Value History N/A 0 EKG N/A 0 Age N/A 0 Risk Factors N/A 0 Troponin N/A 0 Total 0 I personally scribed for BERRY KNOX MD ([email or web address]) on 02/05/25 at 22:56. Electronically submitted by Luis Barba ([email or web address]). BERRY KNOX MD Feb 05, 2025 22:56
[2025-02-06] MEDS: CLINDAMYCIN HCL 150 MG CAP PO ONE (00:52)
[2025-02-06 00:54] VITALS: BP 109/59; PULSE 59; RESP 18; TEMP 98.4; O2SAT 100
[2025-02-06] MEDS: IBUPROFEN 600 MG TAB PO ONE (00:54)
== END 2025-02-06 00:54 | disposition home or self-care (01) ==
LOC: ER 22:18
DX: K04.7 Periapical abscess without sinus (principal); F17.210 Nicotine dependence, cigarettes, uncomplicated; Z88.0 Allergy status to penicillin; Z88.1 Allergy status to other antibiotic agents

== ENCOUNTER 2025-02-08 07:24 | Emergency (ER) | payer MEDICAID ==
[~2025-02-08] VITALS: Ht 167.6 cm; Wt 103.4 kg
[~2025-02-08 07:24] MED LIST changes: +CLIN1CAP70 PO
[2025-02-08 07:26] VITALS: TEMP 98
--- NOTE | 2025-02-08 07:51 | ED.PDOC ---
HPI Comments This is a 39 year old female presenting to the ED with chief complaint of palpitations. Patient reports that when getting off of work this morning, she began to experience palpitations with associated pain to the middle of her back. Patient relays that she has never had this feeling before and has no increased stress lately. Patient states she takes multiple medications for depression and anxiety at this time. Patient denies any chest pain, SOB, headache, dizziness, N/V, or abdominal pain. Chief Complaint: Palpitations Time Seen by MD: 07:50 Primary Care Provider: MELANIE Lloyd Notes: Nurses Notes, Medications, Allergies Allergies: Coded Allergies: Doxycycline (Verified Allergy, Unknown, 08/07/23) Penicillins (Verified Allergy, Unknown, 08/07/23) Home Meds Active Scripts Clindamycin Hcl (Clindamycin Hcl) 300 Mg Cap, 1 CAP PO BID for 10 Days, #20 CAP Prov:BERRY KNOX MD 02/05/25 Ondansetron Odt 4MG Tab (ZOFRAN PO) 4 Mg Tb, 4 MG PO TID PRN, #20 TAB prn n/v ODT TAB-DISSOLVE IN MOUTH, THEN SWALLOW Prov:RICHARD DRUMMOND MD 03/19/24 Ibuprofen Micronized (Ibuprofen) 600 Mg Tab, 600 MG PO Q6HPRN PRN, #30 TAB prn pain Prov:RICHARD DRUMMOND MD 03/19/24 Methocarbamol (Methocarbamol) 750 Mg Tab, 750 MG PO BID, #20 TAB Prov:GEETA LEE 08/08/23 Ibuprofen (Ibuprofen) 800 Mg Tab, 1 TAB PO TID, #30 TAB Prov:GEETA LEE 08/08/23 Information Source: Patient Mode of Arrival: Ambulatory Severity: Moderate Timing: Hours Duration: Since onset Prehospital treatment: None Onset: At Rest Cardiac Risk Factors: None PE Risk Factors: None Associated Signs and Symptoms: Palpitations Past Medical History PAST MEDICAL HISTORY: Anxiety, Depression Past Medical History (Other): Intracranial hypertension Surgical History: Denies all surgeries AUDITOR INTERNAL History: No Pertinent AUDITOR INTERNAL History Family History Family History: Reviewed,noncontributory to illness Social History Smoker: Cigarettes, Other Alcohol: Occasionally Drugs: Denies Drug Use Lives In: Home Constitutional: denies: chills, diaphoresis, fatigue, fever, malaise, sweats, weakness, others EENTM: denies: blurred vision, double vision, ear bleeding, ear discharge, ear drainage, ear pain, ear ringing, eye pain, eye redness, hearing loss, mouth pain, mouth swelling, nasal discharge, nose bleeding, nose congestion, nose pain, photophobia, tearing, throat pain, throat swelling, voice changes, others Respiratory: denies: cough, hemoptysis, orthopnea, SOB at rest, shortness of breath, SOB with excertion, stridor, wheezing, others Cardiovascular: reports: palpitations; denies: chest pain, dizzy spells, diaphoresis, Dyspnea on exertion, edema, irregular heart beat, left arm pain, lightheadedness, PND, syncope, others Gastrointestinal: denies: abdomen distended, abdominal pain, blood streaked bowels, constipated, diarrhea, dysphagia, difficulty swallowing, hematemesis, melena, nausea, poor appetite, poor fluid intake, rectal bleeding, rectal pain, vomiting, others Genitourinary: denies: abnormal vagina bleeding, burning, dyspareunia, dysuria, flank pain, frequency, hematuria, incontinence, pain, , vagina discharge, urgency, others Neurological: denies: dizziness, fainting, headache, left sided numbness, left sided weakness, numbness, paresthesia, pre-existing deficit, right sided numbness, right sided weakness, seizure, speech problems, tingling, tremors, weakness, others Musculoskeletal: reports: back pain; denies: gout, joint pain, joint swelling, muscle pain, muscle stiffness, neck pain, others Integumetry: denies: bruises, change in color, change in hair/nails, dryness, laceration, lesions, lumps, rash, wounds, others Allergic/Immunocompromised: denies: Difficulty Healing, Frequent Infections, Hives, Itching, others Hematologic/Lymphatic: denies: anemia, blood clots, easy bleeding, easy bruising, swollen glands, others Endocrine: denies: excessive hunger, excessive sweating, excessive thirst, excessive urination, flushing, intolerance to cold, intolerance to heat, unexplained weight gain, unexplained weight loss, others Psychiatric: denies: anxiety, bipolar disorder, depression, hopeless, panic disorder, schizophrenia, sleepless, suicidal, others All Other Systems: Reviewed and Negative Physical Exam General Appearance: Moderate Distress, Normal HEENT: Normal ENT Inspection, Pharynx Normal, TMs Normal Neck: Full Range of Motion, Non-Tender, Normal, Normal Inspection Respiratory: Chest Non-Tender, Lungs Clear, No Accessory Muscle Use, No Respiratory Distress, Normal Breath Sounds Cardiovascular: No Edema, No JVD, No Murmur, No Gallop, Normal Peripheral Pulses, Regular Rate/Rhythm Breast Exam: Deferred Gastrointestinal: No Organomegaly, Non Tender, No Pulsatile Mass, Normal Bowel Sounds, Soft Genitalia: Deferred Pelvic: Deferred Rectal: Deferred Extremities: No calf tenderness, Normal capillary refill, Normal inspection, Normal range of motion, Non-tender, No pedal edema Musculoskeletal : Apperance: Normal Neurologic: Alert, casino runner II-XII nml as Tested, No Motor Deficits, Normal Affect, Normal Mood, No Sensory Deficits Cerebellar Function: Normal Reflexes: Normal Skin: Dry, Normal Color, Warm Peripheral Pulses: 3+ Radial (R), 3+ Radial (L) Lymphatic: No Adenopathy EKG EKG : Pulse Rate (adult): 57 [place]: Normal Cardiac Rhythm: NSR Was a procedure done? Was a procedure done?: No CP Differential Dx Differential Diagnosis: A-fib, A-Flutter, Angina, Anxiety / Panic Attack, Atrial Dysrhythmia, Electrolyte Disorder X-Ray, Labs, Meds, VS Vital Signs Date Time Temp Pulse Resp B/P (MAP) Pulse Ox O2 Delivery O2 Flow Rate FiO2 02/08/25 08:54 57 02/08/25 07:51 57 02/08/25 07:31 57 02/08/25 07:26 98.0 59 18 105/57 99 98.0 Lab Test 02/08/25 09:00 02/08/25 08:44 02/08/25 07:59 Range/Units Troponin I High Sensitivity < 3 L < 3 L </=34 ng/L Urine Color Colorless Yellow Urine Clarity Clear Clear Urine pH 5.5 5.0-9.0 Urine Specific [place] 1.008 1.001-1.035 Urine Protein Negative Negative Urine Ketones Negative Negative Urine Blood 1+ H Negative /uL Urine Nitrite Negative Negative Urine Bilirubin Negative Negative Urine Urobilinogen Normal Negative mg/dL Urine Leukocyte Esterase Negative Negative /uL Urine RBC <1 0 - 4 /hpf Urine Microscopic WBC < 1 0-5 /HPF Urine Squamous Epithelial Cells Few <5 /hpf Urine Bacteria None seen None Seen /hpf Urine Glucose Normal Normal mg/dL White Blood Count 10.7 4.4-10.8 10^3/uL Red Blood Count 4.08 4.0-5.20 10^6/uL Hemoglobin 12.9 12.2-16.2 g/dL Hematocrit 37.6 36.0-46.0 % Mean Corpuscular Volume 92.2 80.0-100.0 fL Mean Corpuscular Hemoglobin 31.5 28.0-32.0 pg Mean Corpuscular Hemoglobin Concent 34.2 32.0-36.0 g/dL Red Cell Distribution Width 13.2 11.8-14.3 % Platelet Count 294 140-450 10^3/uL Mean Platelet Volume 7.7 6.9-10.8 fL Neutrophils (%) (Auto) 70.4 37.0-80.0 % Lymphocytes (%) (Auto) 23.9 10.0-50.0 % Monocytes (%) (Auto) 4.8 0.0-12.0 % Eosinophils (%) (Auto) 0.8 0.0-7.0 % Basophils (%) (Auto) 0.1 0.0-2.0 % Neutrophils # (Auto) 7.6 1.6-8.6 10 ^3/uL Lymphocytes # (Auto) 2.6 0.4-5.4 10 ^3/uL Monocytes # (Auto) 0.5 0-1.3 10 ^3/uL Eosinophils # (Auto) 0.1 0-0.8 10 ^3/uL Basophils # (Auto) 0 0-0.2 10 ^3/uL Nucleated Red Blood Cells 0.0 % Sodium Level 142 136-145 mmol/L Potassium Level 4.0 3.5-5.1 mmol/L Chloride Level 109 H 98-107 mmol/L Carbon Dioxide Level 24 20-31 mmol/L Anion Gap 9 5-15 Blood Urea Nitrogen 13 9-23 mg/dL Creatinine 0.87 0.550-1.02 mg/dL Glomerular Filtration Rate Calc 87 >90 mL/min BUN/Creatinine Ratio 14.9 10.0-20.0 Serum Glucose 91 74-106 mg/dL Calcium Level 9.1 8.7-10.4 mg/dL Patient alert. Came in because of palpitation. Vitals stable. Answering questions. History of anxiety. WBC within normal limits. Hemoglobin within normal limits. EKG does not show any acute process. Cardiac marker within normal limits. Explained to the patient. Was told to follow up with her primary care physician. Was told to come back if there is any problem. Time of 1ST Reevaluation: 08:49 Reevaluation 1ST: Unchanged Patient Education/Counseling: Diagnosis, Treatment Family Education/Counseling: No Family Present SEPSIS Sepsis Screen Date sepsis recognized/suspect: Feb 08, 2025 Time Sepsis recognized/suspect: 726 Recent Procedure: No On Antibiotic Therapy: No Respiratory Rate >20: No Heart Rate >90: No Temp<36 C (96.8 F) or >38.3 C: No SBP <90 or MAP <65 mmHG: No New Acute Mental Status Change: No Is the patient on CPAP, BIPAP,: No Vital Signs Date Time Temp Pulse Resp B/P (MAP) Pulse Ox O2 Delivery O2 Flow Rate FiO2 02/08/25 08:54 57 02/08/25 07:51 57 02/08/25 07:31 57 02/08/25 07:26 98.0 59 18 105/57 99 98.0 Laboratory Tests Test 02/08/25 07:59 White Blood Count 10.7 10^3/uL (4.4-10.8) Departure 1 Departure Time of Disposition: 09:23 Impression: Primary Impression: Anxiety Disposition: 01 HOME / SELF CARE / HOMELESS Condition: Good Discharged With: Self Critical Care Note Critical Care Time?: No Stability Stability form required: No Heart Score Heart Score: Heart Score Response (Comments) Value History Moderate Suspicious 1 EKG Normal 0 Age <45 0 Risk Factors No known risk factors 0 Troponin Normal limit 0 Total 1 I personally scribed for LINDSAY HERNANDEZ MD ([email or web address]) on 02/08/25 at 07:51. Electronically submitted by Armando Carranza ([email or web address]). LINDSAY HERNANDEZ MD Feb 08, 2025 07:51
[2025-02-08 08:28] LABS: Hematocrit 37.6 % (36.0-46.0); Hemoglobin 12.9 g/dL (12.2-16.2); Mean Corpuscular Hemoglobin 31.5 pg (28.0-32.0); Mean Corpuscular Volume 92.2 fL (80.0-100.0); Nucleated Red Blood Cells % 0.0 %
[2025-02-08 08:36] LABS: Potassium 4.0 mmol/L (3.5-5.1); Sodium 142 mmol/L (136-145)
[2025-02-08 08:37] LABS: Anion Gap 9 (5-15); Calcium 9.1 mg/dL (8.7-10.4); Carbon Dioxide 24 mmol/L (20-31)
[2025-02-08 08:40] LABS: Chloride 109 mmol/L (98-107)
[2025-02-08 08:42] LABS: BUN/Creatinine Ratio 14.9 (10.0-20.0); Blood Urea Nitrogen 13 mg/dL (9-23); Glucose 91 mg/dL (74-106)
--- NOTE | 2025-02-08 08:55 | ECG ---
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
[2025-02-08 09:36] LABS: Urine Protein, UAD Negative (Negative)
[2025-02-08 12:24] VITALS: BP 106/72; PULSE 58; RESP 16; O2SAT 100
--- NOTE | 2025-02-09 12:54 | ECG ---
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
== END 2025-02-08 12:25 | disposition home or self-care (01) ==
LOC: ER 07:24
DX: F41.9 Anxiety disorder, unspecified (principal); R00.2 Palpitations; M54.6 Pain in thoracic spine; F17.210 Nicotine dependence, cigarettes, uncomplicated; F32.A Depression, unspecified; Z88.0 Allergy status to penicillin; Z88.1 Allergy status to other antibiotic agents
CPT/HCPCS: 36415; 80048; 81001; 84484; 85025; 93005